=== PATIENT | male | born 1980 | race Caucasian/White ===

== ENCOUNTER → 2017-07-30 | Outpatient (REF) | payer OTHER | LOC: M SFHCLERA 15:05 | DX: Z72.51 High risk heterosexual behavior (principal) ==

== ENCOUNTER 2019-11-19 09:31 | Day surgery (SDC) | payer OTHER ==
[~2019-11-19] VITALS: Ht 193 cm; Wt 121.1 kg
[~2019-11-19 09:31] MED LIST: ATOM40CA16 PO; LIDOCAINE 1% MDV 20ML VIAL SQ PRN; LIDOCAINE 2% 100MG/5ML SDV (FOR ANES.) As Ordered ONE; LR 1,000 ML IV ONE; MIDAZOLAM INJ 2MG/2ML VIAL (J2250 PER 1MG) As Ordered ONE; MULTCAP PO; ONDANSETRON 4MG/2ML VIAL As Ordered ONE; ceFAZolin SOD 2 GM in IV 1 EA IV ONE; fentaNYL 100 MCG/2 ML INJECTION (J3010) As Ordered ONE; propofoL 500 MG/50 ML VIAL As Ordered ONE
[2019-11-19] MEDS ORDERED: LIDOCAINE 1% MDV 20ML VIAL As Ordered ONE (11:47)
[2019-11-19] MEDS ORDERED: BUPIVACAINE HCL 0.5% 10ML VIAL As Ordered ONE (11:47)
[2019-11-19] MEDS ORDERED: dexameTHASONE 4 MG/ML 1ML VIAL (J1100 PER 1MG) As Ordered ONE (11:47)
[2019-11-19] MEDS ORDERED: propofoL 200 MG/20 ML VIAL As Ordered ONE (12:38)
[2019-11-19] MEDS ORDERED: KETOROLAC 60MG 2ML VIAL As Ordered ONE (13:00)
[2019-11-19 13:40] VITALS: BP 130/85
--- NOTE | 2019-11-23 14:27 | RO ---
DATE OF PROCEDURE: 11/19/2019 PREPROCEDURE DIAGNOSIS: Right foot mass. POSTPROCEDURE DIAGNOSIS: Right foot mass. PROCEDURE: Right foot soft tissue mass excision. SURGEON: Sulaiman Burnette DPM [employer]CIAL [employer]: None. ANESTHESIA: Monitored anesthesia care with preoperative injection of 14 mL of a 1:1 mixture of 1% lidocaine plain and 0.50% Marcaine plain. ESTIMATED BLOOD LOSS: Minimal. MATERIALS: #4-0 Vicryl, #4-0 nylon. SPECIMEN: Right foot mass. COMPLICATIONS: None. CONDITION: Stable. Nolan Mireles is a 39-year-old male who presents to [facility] with a large growing mass. He states it has been present for several years. 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 It was decided to bring him to the operating room for excision of this mass. The patient's side and site were identified and marked in the preoperative holding area. Consent was reviewed and obtained. The risks, complications, and alternatives to the procedure were explained to the patient in detail and all questions were answered. DESCRIPTION OF PROCEDURE: The patient was brought to the operating room, placed on the operative table in the supine position, monitored anesthesia care was delivered by the anesthesia team. Preoperative injection of 14 mL of a 1:1 mixture of 1% lidocaine plain and 0.50% Marcaine plain were injected into the right foot. The right foot was prepped and draped in the normal sterile fashion. Tourniquet was applied to the right ankle, inflated at 250 mmHg. The mass was palpated at the first interspace, and an incision was made at this area. The mass was noted to be immediately within the subcutaneous tissue, extending deep into the interspace. Careful dissection was performed using tenotomy scissors and a #15 blade. The mass was noted to have enveloped some small veins and nerves. These were cauterized and transected. The mass stayed superior to the intermetatarsal ligament. It did not appear to enter into the joint capsule or bone. The mass was excised in total. It measured approximately 5 x 2 cm. The site was irrigated with normal saline, and the incision was closed with #4-0 Vicryl and #4-0 nylon. Sterile dressings were applied, tourniquet was deflated. The patient was brought to the post-anesthesia care unit (PACU), vital signs stable, neurovascular status intact. He will be weightbearing as tolerated. He will followup in 2 days.
== END 2019-11-19 13:40 | disposition home or self-care (01) ==
LOC: M SDC 09:31
PROVIDERS: ATTEND Podiatrist Foot & Ankle Surgery
DX: D21.21 Benign neoplasm of connective and other soft tissue of right lower limb, including hip (principal)
CPT/HCPCS: 28039; 88304; J0690; J1100; J1885; J2250; J2405; J3010